=== PATIENT | male | born 1980 | race Caucasian/White ===

== ENCOUNTER 2018-12-05 20:26 | Emergency (ER) | payer OTHER ==
[~2018-12-05] VITALS: Ht 190.5 cm; Wt 90.7 kg
[2018-12-05] MEDS ORDERED: NEURONTIN300 MG PO (20:47)
[2018-12-05] MEDS ORDERED: PROZAC40 MG PO (20:47)
[2018-12-05] MEDS ORDERED: PREDNISONE20 MG PO (23:45)
== END 2018-12-05 23:55 | disposition home or self-care (01) ==
LOC: ED 20:26
DX: M79.89 Other specified soft tissue disorders (principal); F17.200 Nicotine dependence, unspecified, uncomplicated; Z88.5 Allergy status to narcotic agent; Z88.8 Allergy status to other drugs, medicaments and biological substances; Z79.899 Other long term (current) drug therapy
CPT/HCPCS: 36415; 84550; 85025; 99283; J7512